=== PATIENT | male | born 2000 | race Two or more races ===

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

== ENCOUNTER 2025-01-25 02:23 | Emergency (ER) | payer OTHER ==
[~2025-01-25] VITALS: Ht 165.1 cm; Wt 109.5 kg
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
[2025-01-25] MEDS ORDERED: IBUP-1456 PO (05:26)
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
[2025-01-25 05:35] VITALS: BP 139/98; PULSE 103; RESP 19; TEMP 98.7; O2SAT 95
== END 2025-01-25 05:43 | disposition home or self-care (01) ==
LOC: ER 02:23
DX: S00.83XA Contusion of other part of head, initial encounter (principal); X58.XXXA Exposure to other specified factors, initial encounter; Y93.89 Activity, other specified; Y92.89 Other specified places as the place of occurrence of the external cause; Y99.8 Other external cause status
CPT/HCPCS: 70486